=== PATIENT | male | born 1945 | race Caucasian/White ===

== ENCOUNTER → 2017-06-07 | Outpatient (CLI) | payer MEDICARE, OTHER ==
[~2017-06-07] MED LIST: AMARYL 4MG. TAB4 MG PO; AMLODIPINE10 MG PO; ASPIRIN CHILDRE81 M1 PO; ATENOLOL50 MG PO; CARVEDILOL 25MG25 MG PO; CLONIDINE 0.1M0.1 MG PO; CLOPIDOGREL75 MG PO; FLOMAX 0.4MG C0.4 MG PO; HYDRALAZINE10 M1 PO; LIPITOR40 MG PO; RAMIPRIL 10MG C10 MG PO
== END ==
LOC: LAB 07:34
DX: N18.3 Chronic kidney disease, stage 3 (moderate) (principal); E11.9 Type 2 diabetes mellitus without complications; I10 Essential (primary) hypertension; N27.0 Small kidney, unilateral